=== PATIENT | female | born 1930 | race Caucasian/White ===

== ENCOUNTER 2018-01-13 16:59 | Emergency (ER) | payer MEDICARE, OTHER ==
[~2018-01-13] VITALS: Ht 157.5 cm; Wt 64.4 kg
[2018-01-13 18:47] LABS: Basophils # (auto) 0 uL; Basophils % (auto) 0.3 % (0.0-2.0); Eosinophils # (auto) 0.1 uL; Eosinophils % (auto) 1.9 % (0.0-7.0); Hematocrit 37.6 % (36.0-46.0); Hemoglobin 13.1 g/dL (12.2-16.2); Lymphocytes # (auto) 1.9 uL; Lymphocytes % (auto) 27.2 % (10.0-50.0); Mean Corpuscular Hemoglobin 29.6 pg (28.0-32.0); Mean Corpuscular Hgb Conc. 34.7 g/dL (32.0-36.0); Mean Corpuscular Volume 85.3 fL (80.0-100.0); Monocytes # (auto) 0.7 uL; Monocytes % (auto) 10.5 % (0.0-12.0); Neutrophils # (auto) 4.2 uL; Neutrophils % (auto) 60.1 % (37.0-80.0); Nucleated Red Blood Cells % 0.1 %; Platelet Count (auto) 231 10^3/uL (140-450); Red Blood Cells 4.41 10^6/uL (4.0-5.20); Red Cell Distribution Width 15.4 % (11.8-14.3)
[2018-01-13 18:58] LABS: Albumin 3.4 g/dL (3.4-5.0); Calcium 8.5 mg/dL (8.5-10.1); Potassium 4.4 mmol/L (3.5-5.1)
[2018-01-13 19:00] LABS: Bilirubin, Total 0.4 mg/dL (0.2-1.0); Total Protein 7.1 g/dL (6.4-8.2)
[2018-01-13 19:21] LABS: Urine Bacteria NONE SEEN /hpf (None Seen); Urine Blood Negative /uL (Negative); Urine Mucus FEW (None Seen); Urine WBC 39 /hpf (0 - 5)
[2018-01-13] MEDS ORDERED: cefTRIAXone W LIDOCAINE 1 GM IM IM ONE (21:00)
[2018-01-13] MEDS ORDERED: cefTRIAXone 1GM/10ml IVPUSH 10 ML IV ONE (21:01)
[2018-01-13] MEDS ORDERED: LIDOCAINE 2% (LOCAL ANESTH.) PF 5ml SDV ONE (21:15)
[2018-01-13 21:21] VITALS: BP 164/73
== END 2018-01-13 22:02 | disposition home or self-care (01) ==
LOC: ER 16:59
DX: N30.00 Acute cystitis without hematuria (principal); I10 Essential (primary) hypertension; Z88.2 Allergy status to sulfonamides; Z90.710 Acquired absence of both cervix and uterus; Z90.49 Acquired absence of other specified parts of digestive tract
CPT/HCPCS: 36415; 80053; 81001; 83880; 85025; 96372; 99284; J0696; J2001